=== PATIENT | male | born 1975 | race Caucasian/White ===

== ENCOUNTER 2021-03-09 09:23 | Day surgery (SDC) | payer OTHER, SELFPAY ==
[~2021-03-09] VITALS: Ht 180.3 cm; Wt 90.7 kg
[2021-03-09] MEDS ORDERED: fentaNYL citrate 0.05 MG/ML VIAL ONE (11:08)
[2021-03-09] MEDS ORDERED: MIDAZOLAM 5 MG/5 ML VIAL ONE ×2 (11:08→11:11)
[2021-03-09] MEDS ORDERED: LIDOCAINE 2% 100 MG/5 ML UJET TP ONE ×2 (11:09→13:25)
[2021-03-09] MEDS ORDERED: MIDAZOLAM 2 MG/2 ML VIAL IVP ONE (13:25)
[2021-03-09] MEDS ORDERED: fentaNYL citrate 0.05 MG/ML VIAL IVP ONE (13:25)
== END 2021-03-09 13:05 | disposition home or self-care (01) ==
LOC: MDS 09:23 → MMU 09:23 → MDS 13:05
PROVIDERS: ATTEND Internal Medicine Gastroenterology
DX: Z12.11 Encounter for screening for malignant neoplasm of colon (principal); K21.9 Gastro-esophageal reflux disease without esophagitis; I10 Essential (primary) hypertension; Z79.899 Other long term (current) drug therapy; Z20.822 Contact with and (suspected) exposure to COVID-19
CPT/HCPCS: 36415; 43239; 45378; 86677; J2250; J3010; U0003